=== PATIENT | male | born 1995 | race Caucasian/White ===

== ENCOUNTER 2020-03-28 00:18 | Emergency (ER) | payer OTHER, SELFPAY ==
[2020-03-28] VITALS (8 sets, daily range): BP systolic 135–161; BP diastolic 77–94; PULSE 122–137; RESP 16–27; TEMP 36.7–37.1; O2SAT 97–99
--- NOTE | 2020-03-28 00:23 | DI.CT.S_ITS ---
PROCEDURE: CT CHEST ABD PEL W CON INDICATIONS: Trauma TECHNIQUE: After the administration of intravenous contrast, 5 mm thick sections acquired from the lung apices to the symphysis. 2.5 mm thick coronal and sagittal reformats were acquired. Additional 7 mm thick coronal maximum intensity projection (MIP) reformats acquired through the lungs. Optional 10-minute delayed imaging may be performed from the kidneys to the bladder. For radiation dose reduction, the following was used: automated exposure control, adjustment of mA and/or kV according to patient size. COMPARISON: None. FINDINGS: Image quality: Excellent. CHEST: Lungs: No pulmonary contusions or lacerations. No acute airspace opacities. No pneumothorax or hemothorax. Central and peripheral airways appear patent and normal in caliber. Mediastinum: No mediastinal hematomas. Heart size is normal. No pericardial effusion. Thoracic aorta and pulmonary arteries demonstrate normal size and enhancement. No mediastinal or hilar adenopathy. Esophagus is normal in caliber. No hiatal hernia. Chest wall: There is a healing fracture of the left a lateral 7th rib. Healing fracture of the left anterior 6th rib. No subcutaneous emphysema. No axillary or supraclavicular adenopathy. Thyroid gland is within normal limits . ABDOMEN: Solid organs: Liver is normal in size and enhancement, without lacerations. Gallbladder is within normal limits . Biliary system is non-dilated. Pancreas enhances normally, without transection. Spleen is normal in size and enhancement, without lacerations. No adrenal hematomas. Both kidneys enhance normally, without hydronephrosis or lacerations. Peritoneum and bowel: No free fluid or air. Unenhanced bowel loops demonstrate normal wall thickness and caliber. Nodes and vessels: No retroperitoneal or mesenteric adenopathy. Aorta and inferior vena cava are normal in size and enhancement. Miscellaneous: No ventral hernias. PELVIS: Genitourinary: Bladder wall thickness is normal. Miscellaneous: No inguinal hernias or adenopathy. Bones: Pelvic ring and hip joints appear intact. No vertebral compression fractures. IMPRESSION: 1. No acute process. 2. Healing left rib fractures. 3. Concordant with preliminary interpretation. Dictated by: Jenny Reyes M.D. on 03/28/2020 at 7:05 Approved by: Jenny Reyes M.D. on 03/28/2020 at 7:08
--- NOTE | 2020-03-28 00:23 | DI.CT.S_ITS ---
PROCEDURE: CT CERVICAL SPINE WO CON INDICATIONS: Trauma TECHNIQUE: Noncontrast 3 mm thick sections acquired from the skull base to the T4 level. Sagittal and coronal reformats were then constructed. For radiation dose reduction, the following was used: automated exposure control, adjustment of mA and/or kV according to patient size. COMPARISON: None. FINDINGS: Image quality: Excellent. Bones: There is a comminuted mildly displaced fracture of the left lateral mass of the C1 vertebral body. Soft tissues: Prevertebral soft tissues are normal in thickness. No paravertebral hematomas. No apical pneumothoraces. IMPRESSION: Comminuted mildly displaced fracture of the left lateral mass of C1. Concordant with preliminary interpretation. Dictated by: Jenny Reyes M.D. on 03/28/2020 at 7:03 Approved by: Jenny Reyes M.D. on 03/28/2020 at 7:05
--- NOTE | 2020-03-28 00:23 | DI.CT.S_ITS ---
PROCEDURE: CT HEAD/BRAIN WO CON INDICATIONS: Trauma TECHNIQUE: Noncontrast 4.5 mm thick angled axial sections acquired from the foramen magnum to the vertex, with coronal and sagittal reformats. For radiation dose reduction, the following was used: automated exposure control, adjustment of mA and/or kV according to patient size. COMPARISON: None. FINDINGS: Image quality: Excellent. CSF spaces: Basal cisterns are patent. No extra-axial fluid collections. Ventricles are normal in size and shape. Brain: No midline shift. No intracranial masses or hemorrhage. Lopez-white matter interface is normal. Skull and face: Calvarium and visualized facial bones are intact, without suspicious lesions. Sinuses: There is complete opacification of the left maxillary sinus which demonstrates high density material within. IMPRESSION: 1. No acute intracranial abnormality. 2. Left maxillary sinus disease, possibly hemorrhagic or fungal. 3. Concordant with preliminary interpretation. Dictated by: Jenny Reyes M.D. on 03/28/2020 at 7:01 Approved by: Jenny Reyes M.D. on 03/28/2020 at 7:02
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
[2020-03-28 00:33] LABS: Add Manual Diff / Slide Review NO; Basophils Absolute Auto 100 /uL (0-100); Basophils Percent Auto 0.7 % (0-2); Eosinophils Absolute Auto 100 /uL (0-450); Eosinophils Percent Auto 0.4 % (2-4); Hematocrit 44.6 % (41-53); Hemoglobin 15.1 g/dL (13.5-17.5); Lymphocytes Absolute Auto 3600 /uL (1100-4500); Lymphocytes Percent Auto 29.2 % (25-40); Mean Corpuscular HGB Conc 33.9 % (30-36); Mean Corpuscular Hemoglobin 30.6 PG (26-34); Mean Corpuscular Volume 90.2 fL (80-100); Monocytes Absolute Auto 800 /uL (0-900); Monocytes Percent Auto 6.3 % (3-14); Neutrophils Absolute Auto 7900 /uL (1500-7000); Neutrophils Percent Auto 63.4 % (50-75); Platelet Count 456 X10^3/uL (150-400); Red Blood Cell Count 4.94 X10^6/uL (4.5-5.9); Red Cell Distribution Width 13.6 % (11.6-14.8); White Blood Cell Count 12.5 X10^3/uL (4.5-11.0)
[2020-03-28 00:45] LABS: Alanine Aminotransferase 20 IU/L (<50); Albumin 4.8 g/dL (3.5-5.0); Albumin Globulin Ratio 1.5 (1.0-2.8); Alkaline Phosphatase 111 U/L (38-126); Aspartate Aminotransferase 38 IU/L (17-59); BUN Creatinine Ratio 7.8 (6-22); Bilirubin Total 0.3 mg/dL (0.2-1.3); Blood Urea Nitrogen 8 mg/dL (9-20); Carbon Dioxide 27 mmol/L (22-32); Chloride 106 mmol/L (98-107); Estimated Glomerular Filt Rate > 60.0 mL/min (>60); Ethanol (ETOH) 225 mg/dL; Globulin 3.3 g/dL (1.7-4.1); Glucose 119 mg/dL (70-100); HEMOLYSIS < 15 (0-50); Lipase 86 U/L (23-300); Potassium 3.5 mmol/L (3.4-5.1); Sodium 144 mmol/L (137-145); Total Protein 8.1 g/dL (6.3-8.2)
[2020-03-28] MEDS: TET,DIPH,PERTUSS(ACELL),VAC/PF 0.5 ML SYRINGE IM (01:21)
[2020-03-28] MEDS: SODIUM CHLORIDE 0.9% 1,000 ML 1000 ML IV (01:23)
[2020-03-28 01:47] LABS: Creatine Kinase 187 U/L (55-170)
[2020-03-28 01:59] LABS: Troponin I < 0.012 ng/mL (0.01-0.034)
[2020-03-28 02:02] LABS: Creatine Kinase MB 1.88 ng/mL (<2.37)
[2020-03-28] MEDS: CEFAZOLIN 1 GM/50 ML FROZ.PIGGY IV (02:43)
[2020-03-28 03:23] LABS: Ur Creatinine Normal (Normal); Ur Specific Gravity Normal (Normal); Urine pH Normal (Normal)
[2020-03-28 03:24] LABS: UR Morphine/Opiate cutoff 300 Negative (Negative); Urine Amphetamines Positive (Negative); Urine Barbiturates Negative (Negative); Urine Benzodiazepines Negative (Negative); Urine Cocaine Negative (Negative); Urine MDMA Negative (Negative); Urine Methadone Negative (Negative); Urine Methamphetamines Positive (Negative); Urine Oxycodone Negative (Negative); Urine Phencyclidine Negative (Negative); Urine Tetrahydrocannabinol Negative (Negative); Urine Tricyclic Antidepressant Negative (Negative)
--- NOTE | 2020-03-28 03:37 | PC.NURSE ---
0315 Pt has not urinated,unable to obtain UA for tests ordered.Dr Vee advised. Pt is AOX4.CMS good to all four extremities.IV site clear without redness,swelling or pain.IV fluids (including IVPB Ancef) infused. Pt is stable at time of transfer.Report given to EMS per Dr Vee.
== END 2020-03-28 03:15 | disposition short-term general hospital (02) ==
PROVIDERS: Emergency Provider Emergency Medicine
DX: S12.040A Displaced lateral mass fracture of first cervical vertebra, initial encounter for closed fracture (principal); S01.01XA Laceration without foreign body of scalp, initial encounter; V43.52XA Car driver injured in collision with other type car in traffic accident, initial encounter; Z23 Encounter for immunization
CPT/HCPCS: 36415; 70450; 71260; 72125; 74177; 80053; 80305; 80320; 82550; 82553; 82962; 83690; 84484; 85025; 86850; 86900; 86901; 90471; 93005; 96361; 96365; 96366; 99285; 99291; 90715; Q9967

== ENCOUNTER 2021-03-28 17:49 | Emergency (ER) | payer OTHER, MEDICAID, SELFPAY ==
[2021-03-28 17:55] VITALS: BP 120/82; PULSE 98; RESP 16; TEMP 36.7; O2SAT 100; BMI 22.0
[2021-03-28] MEDS: LIDO 1%/SOD BICARB 8.4% (10ML) 10 ML SYRINGE INJ (19:24)
[2021-03-28] MEDS: BACITRACIN OINT 0.9 GM PCKT 1 APPLIC TOP (19:24)
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
[2021-03-28 19:34] VITALS: BP 127/69; PULSE 92; RESP 18; O2SAT 98
== END 2021-03-28 19:38 | disposition home or self-care (01) ==
PROVIDERS: Emergency Provider Emergency Medicine
DX: S91.114A Laceration without foreign body of right lesser toe(s) without damage to nail, initial encounter (principal); W26.8XXA Contact with other sharp object(s), not elsewhere classified, initial encounter
CPT/HCPCS: 12001; 99283

== ENCOUNTER 2022-03-09 20:07 | Emergency (ER) | payer OTHER, MEDICAID, SELFPAY ==
[2022-03-09 20:14] VITALS: BP 139/69; PULSE 114; RESP 20; TEMP 36.7; O2SAT 98
--- NOTE | 2022-03-09 20:15 | DI.RAD.S_ITS ---
PROCEDURE: XR CLAVICLE RT INDICATIONS: fall TECHNIQUE: 2 views of the clavicle were acquired. COMPARISON: None. FINDINGS: Bones: There is malalignment of the acromioclavicular joint, with mild inferior displacement of the distal clavicle with respect to the acromion. No discrete fracture identified. No suspicious bony lesions. Soft tissues: No suspicious soft tissue calcifications. IMPRESSION: 1. Malalignment of the acromioclavicular joint with inferior displacement of the distal acromion suggestive of a type AC joint injury. Dictated by: Fransisco Peguero M.D. on 03/09/2022 at 22:16 Approved by: Fransisco Peguero M.D. on 03/09/2022 at 22:18
--- NOTE | 2022-03-09 22:44 | ED_ITS ---
HPI - General Adult General Chief complaint: Extremity Injury, Upper Stated complaint: rt collar bone injury Time Seen by Provider: 03/09/22 22:32 Source: patient Mode of arrival: Ambulatory History of Present Illness HPI narrative: Otherwise healthy 26-year-old gentleman was playing [employer] and collided with another player landing on his right shoulder tried to talk and roll and was unable to talk or role. He felt a pop in the shoulder is concerned that he broke his collarbone. Comes in for further evaluation Related Data Allergies Allergy/AdvReac Type Severity Reaction Status Date / Time No Known Drug Allergies Allergy Verified 03/28/20 01:14 Review of Systems Review of Systems Narrative: Pertinent positive and negative findings as per HPI Remainder of review of systems is otherwise unremarkable for Constitutional: Fevers, chills, weakness ENT: No sore throat, neck pain, ear pain CV: Chest pain, palpitations, Respiratory: Cough, wheeze, dyspnea GI: Nausea, vomiting, diarrhea, : Dysuria, hematuria, Patient History Social History Smoking Status: Current every day smoker Smoking Status: Current every day smoker alcohol intake frequency: 3 or more drinks per day Substance Use Type: marijuana, opiates and methamphetamine Exam Initial Vital Signs Initial Vital Signs: Vital Signs Temperature 98.0 F 03/09/22 20:14 Pulse Rate 114 H 03/09/22 20:14 Respiratory Rate 20 03/09/22 20:14 Blood Pressure 139/69 03/09/22 20:14 Pulse Oximetry 98 03/09/22 20:14 Oxygen Delivery Method 03/09/22 20:14 General: Alert appropriate in no acute distress Respiratory: Able to speak in full sentences, no obvious respiratory distress Chest: No subcutaneous air. Tender over the acromioclavicular joint with some mild bruising at the site. Right shoulder is slightly lower than the left shoulder. He has tenderness with active range of motion at the shoulder but tolerates passive range of motion with minimal difficulty. He is neurovascularly intact. Skin: No obvious rashes, warm and dry Neurologic: Grossly intact no obvious asymmetries or abnormalities Psych: appropriate insight and affect, cooperative Procedures Orthopedic Splinting/Casting Right AC separation: Time of procedure: 22:56 Side: right Upper Extremity Injury Location: clavicle Upper Extremity Immobilizer: sling/shoulder immobilizer Post splinting neuro exam: intact Post splinting vascular exam: intact Placed by: Nursing Course Orders Ordered: ED Orders 03/09/22 20:15 XR clavicle RT Stat Vital Signs Vital signs: Vital Signs - 8 hr 03/09/22 20:14 Temperature 98.0 F Pulse Rate 114 H Respiratory Rate 20 Blood Pressure 139/69 Pulse Oximetry 98 Oxygen Delivery Method Room Air Medical Decision Making Imaging Data XR clavicle: Radiologist's Impression: FINDINGS:? ? Bones:? There is malalignment of the acromioclavicular joint, with mild inferior displacement of the distal clavicle with respect to the acromion.? No discrete fracture identified.? No suspicious bony lesions.? ? Soft tissues:? No suspicious soft tissue calcifications.? ? IMPRESSION:? ? 1. Malalignment of the acromioclavicular joint with inferior displacement of the distal acromion suggestive of a type AC joint injury.? ? ? Dictated by: Fransisco Peguero M.D. on 03/09/2022 at 22:16 ? ? MDM Narrative Medical decision making narrative: 26-year-old gentleman with a dive tackle landing on his right anterior shoulder and suffering a type IV AC joint injury without bony injury. Findings reviewed with patient. He is placed in a sling for comfort. Will recommend a follow-up with Orthopedic surgery. At this time there is no evidence of nerve or vascular damage or other musculoskeletal injury. He is safe for home discharge Discharge Plan Departure Patient Disposition: Home Clinical Impression: AC separation, type 4 Instructions: DI for AC Joint Separation Activity Restrictions/Additional Instructions: Thank you for coming in today Your x-rays suggest that you have an acromioclavicular joint separation rather than an actual broken bone. This is torn and stretched ligaments that are causing the injury in the overall pain Use the sling for comfort. Using 400 mg of ibuprofen (2 opat-byr-ygnherb pills) and 1 Tylenol every 6 hours can be very helpful in controlling pain. Please schedule an appointment with [facility] at [phone] for definitive treatment and follow-up If you find that you are getting worse or develop any new symptoms, please feel free to return to the emergency department for further evaluation.
[2022-03-09] MEDS: ACETAMINOPHEN 325 MG TABLET PO (22:56)
[2022-03-09] MEDS: IBUPROFEN 400 MG TABLET PO (22:57)
[2022-03-09 23:07] VITALS: BP 130/65; PULSE 90; RESP 20; O2SAT 98
== END 2022-03-09 23:08 | disposition home or self-care (01) ==
PROVIDERS: Emergency Provider Emergency Medicine
DX: S43.109A Unspecified dislocation of unspecified acromioclavicular joint, initial encounter (principal); W19.XXXA Unspecified fall, initial encounter
CPT/HCPCS: 73000; 99283